=== PATIENT | male | born 1965 | race Two or more races ===

== ENCOUNTER → 2017-09-15 | Emergency (ER) | payer OTHER ==
[~2017-09-15] VITALS: Ht 170.2 cm; Wt 72.6 kg
[~2017-09-15] MED LIST: COREG CR10 MG; HYDROCHLOROTH12.5 MG; KETO10TA2 PO; TESSALON PERLE100 MG PO; ZITHROMAX200 MG PO
== END | disposition home or self-care (01) ==
LOC: ER 17:59
DX: J11.1 Influenza due to unidentified influenza virus with other respiratory manifestations (principal)

== ENCOUNTER 2018-04-01 02:24 | Emergency (ER) | payer OTHER ==
[~2018-04-01] VITALS: Ht 170.2 cm; Wt 71.2 kg
== END 2018-04-01 06:09 | disposition home or self-care (01) ==
LOC: ER 02:24
DX: T78.49XA Other allergy, initial encounter (principal); L29.8 Other pruritus

== ENCOUNTER 2018-04-04 01:04 | Emergency (ER) | payer OTHER ==
[~2018-04-04] VITALS: Ht 152.4 cm; Wt 71.2 kg
== END 2018-04-04 12:12 | disposition home or self-care (01) ==
LOC: ER 01:04
DX: M27.2 Inflammatory conditions of jaws (principal)

== ENCOUNTER 2018-05-13 17:19 | Outpatient (CLI) | payer OTHER | END 2018-05-13 17:26 | disposition home or self-care (01) | LOC: LAB 17:19 | DX: I10 Essential (primary) hypertension (principal) ==

== ENCOUNTER → 2018-07-21 | Outpatient (CLI) | payer OTHER | END | disposition home or self-care (01) | LOC: MRI 07-20 14:30 | DX: C71.8 Malignant neoplasm of overlapping sites of brain (principal) | CPT/HCPCS: 70552 ==

== ENCOUNTER 2018-09-20 17:02 | Outpatient (CLI) | payer OTHER | END 2018-09-20 17:18 | disposition home or self-care (01) | LOC: LAB 17:02 | DX: I10 Essential (primary) hypertension (principal); J40 Bronchitis, not specified as acute or chronic; J44.0 Chronic obstructive pulmonary disease with (acute) lower respiratory infection ==

== ENCOUNTER → 2019-02-25 | Outpatient (CLI) | payer OTHER | END | disposition home or self-care (01) | LOC: RAD 17:09 | DX: I10 Essential (primary) hypertension (principal) ==

== ENCOUNTER → 2019-09-01 | Outpatient (CLI) | payer OTHER | END | disposition home or self-care (01) | LOC: RAD 18:42 | DX: I10 Essential (primary) hypertension (principal) ==

== ENCOUNTER 2019-12-12 09:29 | Outpatient (CLI) | payer OTHER | END 2019-12-12 11:52 | disposition home or self-care (01) | LOC: OFIC 805 09:29 | DX: R07.0 Pain in throat (principal); K13.79 Other lesions of oral mucosa; R50.9 Fever, unspecified ==

== ENCOUNTER 2020-10-10 14:46 | Outpatient (CLI) | payer OTHER | END 2020-10-10 14:50 | disposition home or self-care (01) | LOC: MRI 14:46 | PROVIDERS: ATTEND Otolaryngology | DX: M54.5 Low back pain (principal); M54.15 Radiculopathy, thoracolumbar region | CPT/HCPCS: 72148 ==

== ENCOUNTER 2022-01-11 00:33 | Emergency (ER) | payer OTHER ==
[~2022-01-11] VITALS: Ht 170.2 cm; Wt 68.0 kg
[2022-01-11] MEDS ORDERED: TOPROL XL25 M1 PO (03:29)
[2022-01-11] MEDS ORDERED: ACETAMINOPHEN500 M2 PO (03:29)
== END 2022-01-11 04:16 | disposition home or self-care (01) ==
LOC: ER 00:33
DX: R00.0 Tachycardia, unspecified (principal); I10 Essential (primary) hypertension; R51.9 Headache, unspecified; Z88.0 Allergy status to penicillin

== ENCOUNTER 2023-11-09 15:32 | Outpatient (CLI) | payer OTHER ==
[~2023-11-09 15:32] MED LIST changes: +ACETAMINOPHEN500 M2 PO; +TOPROL XL25 M1 PO
== END 2023-11-09 15:34 | disposition home or self-care (01) ==
LOC: TOM 15:32
PROVIDERS: ATTEND Internal Medicine Cardiovascular Disease
DX: S09.90XA Unspecified injury of head, initial encounter (principal)

== ENCOUNTER 2024-08-01 01:41 | Emergency (ER) | payer OTHER ==
[~2024-08-01] VITALS: Ht 162.6 cm; Wt 72.6 kg
[2024-08-01] MEDS ORDERED: HYDROCHLOROTHIA25 MG PO (04:54)
== END 2024-08-01 06:18 ==
LOC: ER 01:43
DX: I10 Essential (primary) hypertension (principal); Z88.0 Allergy status to penicillin

== ENCOUNTER 2024-09-01 11:10 | Outpatient (CLI) | payer OTHER ==
[~2024-09-01 11:10] MED LIST changes: +HYDROCHLOROTHIA25 MG PO
== END 2024-09-01 11:12 | disposition home or self-care (01) ==
LOC: NUCLEAR 11:10
PROVIDERS: ATTEND Internal Medicine Cardiovascular Disease
DX: I10 Essential (primary) hypertension (principal)